=== PATIENT | female | born 1990 | race American Indian/Alaskan Native ===

== ENCOUNTER 2019-06-07 18:07 | Outpatient (CLI) | payer MEDICAID, OTHER ==
[2019-06-07 18:32] VITALS: BP 128/76
--- NOTE | 2019-06-07 20:41 | Event Note ---
Date: 06/07/19 Patient complains of possible leaking amniotic fluid, no bleeding. +fm. SSE, negative pool, negative fern, cervix closed. GUIDO verbal report 8cm FHT's cat 1, allow home. Labor precautions
--- NOTE | 2019-06-07 21:55 | Ultrasound Report ---
Limited OB Ultrasound HISTORY: LEAKING FLUID. Possible premature rupture membranes, here to evaluate GUIDO, estimated delive ry date by last menstrual period is 39 weeks and 6 days. TECHNIQUE: Grayscale and color Doppler imaging performed. COMPARISON: None FINDINGS: Single intrauterine gestation which is cephalic in presentation. heart rate is 156 bp m. GUIDO is 8.7. Umbilical cord adjacent to the neck, incompletely visualized on this exam. IMPRESSION: Single viable intrauterine gestation with GUIDO of 8.7. Signer Name: Lucian Cardona MD Signed: 06/07/2019 9:51 PM Workstation Name: [id number]
== END 2019-06-07 20:44 | disposition home or self-care (01) ==
LOC: TRG 18:07
PROVIDERS: ATTEND Obstetrics & Gynecology
DX: O47.1 False labor at or after 37 completed weeks of gestation (principal); Z3A.39 39 weeks gestation of pregnancy
CPT/HCPCS: 59025; 76815

== ENCOUNTER 2019-06-09 14:27 | Inpatient (IN) | payer OTHER ==
[2019-06-09] MEDS ORDERED: MINERAL OIL PO PRN (17:28)
[2019-06-09] MEDS ORDERED: BRETHINE SUB-Q PRN (17:28)
[2019-06-09] MEDS ORDERED: XYLOCAINE 2% INFILTRATI ONE (17:28)
[2019-06-09] MEDS ORDERED: ZOFRAN IV PRN (17:28)
[2019-06-09] MEDS ORDERED: SUBLIMAZE IV PRN (17:28)
[2019-06-09] MEDS ORDERED: LACTATED RINGERS 1,000 ML IV SCH (18:00)
[2019-06-09] MEDS ORDERED: PITOCin/NS 30 UNIT/500ML 30 UNITS/500 ML BAG IV SCH (18:00)
[2019-06-09] MEDS ORDERED: PITOCin/NS 20 UNIT/1000ML DRIP 20 UNITS/1,000 ML BAG IV SCH (18:00)
--- NOTE | 2019-06-09 18:53 | History and Physical Report ---
History of Present Illness Date of examination: 06/09/19 (SROM ) Chief complaint: SROM 1200 History of present illness: EDC Confirmation: 06/09/2019 Past History : 5 Term Births: 4 Premature Births: 0 Living Children: 4 Para: 4 Mult. Births: 0 Prev : 0 Prev. attempt? 0 Aborta: 0 Elect. Ab: 0 Spont. Ab: 0 Ectopics: 0 # 1 Delivery date: 2006 Weeks Gestation: term labor: no Delivery type: Sex: Female weight: 8#1 # 2 Delivery date: 2008 Weeks Gestation: term labor: no Delivery type: Sex: Male weight: 6#13 # 3 Delivery date: 2012 Weeks Gestation: term labor: no Delivery type: Sex: Male weight: 7#12 # 4 Delivery date: 2015 Weeks Gestation: term labor: no Delivery type: Infant Sex: Male weight: 7#0 Past Medical History: Asthma - inhaler, managed by Dr. Tillman Past Surgical History: Negative Past Surgical History Past Medical History Surgery (Non-digital business analyst): Negative Past Surgical History Abnormal PAP: positive, +HRHPV, Neg - 11/23/18 Family Hx: MGGM, MGM - breast CA Maternal aunt - Thyroid ca Social Hx: Single no ETOH/drugs/Smoking Works as financial auditor in [place] Infection History Hx of STD: + RPR HIV Risk Eval: low risk Hepatitis B Risk Eval: low risk Personal hx. of genital herpes: no Partner hx. of genital herpes: no Rash, Viral, or Febrile illness since last LMP? no Varicella/Chicken Pox Status: Previous Disease Genetic History Congenital Heart Defect: Mom: no Dad: no Michael Disease: Mom: no Dad: no Thalassemia Mom: no Dad: no Neural Tube Defect Mom: no Dad: no Down's Syndrome Mom: no Dad: no Jose Eduardo-Sachs Mom: no Dad: no Sickle Cell Disease/Trait Mom: no Dad: no Hemophilia Mom: no Dad: no Muscular Dystrophy Mom: no Dad: no Cystic Fibrosis Mom: no Dad: no [place] Chorea Mom: no Dad: no Mental Retardation Mom: no Dad: no Fragile X Mom: no Dad: no Other Genetic/Chromosomal Disorder Mom: no Dad: no Child w/other defect Mom: no Dad: no Enviromental Exposures Xray Exposure: no Medication, drug, or alcohol use since LMP: no Chemical/Other Exposure: no Exposure to Cat Liter: no Hx of Parvovirus (Fifth Disease): no Occupational Exposure to Children: none Active Medications (reviewed today): None Current Allergies (reviewed today): No known allergies Past History Past Medical History: other (see HPI) Past Surgical History: other (see HPI) SPECIALTY COOK History: other (see HPI) Family/Genetic History: other (see HPI) - Obstetrical History Expected Date of Delivery: 06/09/19 Actual Gestation: 40 Week(s) 0 Day(s) : 5 Para: 4 Hx # Term Pregnancies: 4 Number of Pregnancies: 0 Spontaneous Abortions: 0 Induced : 0 Number of Living Children: 4 Medications and Allergies Allergies Allergy/AdvReac Type Severity Reaction Status Date / Time No Known Allergies Allergy Verified 06/07/19 18:42 Home Medications Medication Instructions Recorded Confirmed Last Taken Type Vit-Fe Fumar-FA [ 1 tab PO QDAY 06/07/19 06/07/19 06/07/19 09:00 History Vitamin] 1 Active Meds: Active Medications Ephedrine Sulfate (Ephedrine Sulfate) 10 mg IV Q2M PRN PRN Reason: Hypotension Fentanyl (Sublimaze) 100 mcg IV Q2H PRN PRN Reason: Labor Pain Oxytocin/Sodium Chloride (Pitocin/Ns 20 Unit/1000ml Drip) 20 units in 1,000 mls @ 125 mls/hr IV DIRECT ARNALDO Oxytocin/Sodium Chloride (Pitocin/Ns 30 Unit/500ml) 30 units in 500 mls @ 4 mls/hr IV TITR ARNALDO; Protocol Lactated Ringer's (Lactated Ringers) 1,000 mls @ 125 mls/hr IV DIRECT ARNALDO Mineral Oil (Mineral Oil) 30 ml PO QHS PRN PRN Reason: Constipation Ondansetron HCl (Zofran) 4 mg IV Q8H PRN PRN Reason: Nausea And Vomiting Terbutaline Sulfate (Brethine) 0.25 mg SUB-Q ONCE PRN PRN Reason: Hyperstimulation/Hypertonicity Review of Systems All systems: negative - Vital Signs Vital signs: Vital Signs Temp Pulse Resp BP 98.3 F 90 20 129/71 06/09/19 14:49 06/09/19 14:49 06/09/19 14:49 06/09/19 14:49 Temp Pulse Resp BP Pulse Ox 98.3 F 76 16 126/70 98 06/09/19 14:49 06/09/19 18:45 06/09/19 17:43 06/09/19 17:43 06/09/19 18:45 - Physical Exam Breasts: Positive: normal Cardiovascular: Regular rate Lungs: Positive: Clear to auscultation, Normal air movement Abdomen: Positive: normal appearance, soft Genitourinary (Female): Positive: normal external genitalia, normal perenium Vulva: both: normal (no HSV lesion) Vagina: Positive: normal moisture (clear amniotic fluid), other (no HSV lesion) Uterus: Positive: normal size Anus/Rectum: Positive: normal perianal skin Extremities: Positive: normal Deep Tendon Reflex Grade: Normal +2 - Obstetrical FHR: category 1 Uterine Contraction Monitor Mode: External Cervical Dilatation: 2 Cervical Effacement Percentage: 60 station: -2 Uterine Contraction Pattern: Irregular Uterine Tone Measurement Phase: Contraction Uterine Contraction Intensity: Mild Results All other labs normal. Assessment and Plan 29y/o @ 40 weeks admitted for SROM since 1200 today. GUIDO checked today 2cms. GBS negative. Admission orders in EMR. Anticipate . - Patient Problems (1) 40 weeks gestation of Current Visit: Yes Status: Acute (2) SROM (spontaneous rupture of membranes) Current Visit: Yes Status: Acute Plan to address problem: Limit Pit augmentation (3) Asthma Current Visit: Yes Status: Acute Qualifiers: Asthma severity: unspecified severity (4) Herpes Current Visit: Yes Status: Acute Plan to address problem: pt has been taking valtrex Pt denies any s/s of an outbreak no lesions noted
--- NOTE | 2019-06-09 18:58 | Ultrasound Report ---
OB ultrasound. 06/09/2019. HISTORY: Evaluate position and GUIDO. COMPARISON: 06/07/2019. FINDINGS: A single viable intrauterine is in the cephalic position. heart tones are 1 47 bpm. GUIDO is 2.2 cm. IMPRESSION: Abnormal GUIDO of 2.2 cm. GUIDO was previously 8.7 cm. Signer Name: Tone Alberto MD Signed: 06/09/2019 6:53 PM Workstation Name: [id number]
[2019-06-09 20:42] LABS: Hematocrit 36.1 % (30.3-42.9); Mean Corpuscular HGB Conc 33 % (30-34); Mean Corpuscular Volume 97 fl (79-97); Platelet Count 225 K/mm3 (140-440); Red Blood Count 3.74 M/mm3 (3.65-5.03); Red Cell Distribution Width 13.7 % (13.2-15.2)
--- NOTE | 2019-06-10 01:02 | Procedure Note ---
OB Delivery Note - Delivery Date of Delivery: 06/10/19 ( male) Client Relationship Executive: ALLEN MAJOR Estimated blood loss: 300cc - Vaginal Delivery presentation: vertex Delivery position: OA Intrapartum events: PROM->1hr before delivery Delivery induction: none Delivery augmentation: pitocin Delivery monitor: external FHT, external uterine Route of delivery: Delivery placenta: spontaneous Delivery cord: nuchal cord (x1 ), 3 umbilical vessels Episiotomy: none Delivery laceration: none Anesthesia: intravenous Delivery comments: Male del over intact perineum, placed skin to skin. cord blood collected. Intact perineum, lochia scant. Mother and baby remain LDR stable. - Infant A at 1 minute: 8 Infant Gender: Male (7#2)
[2019-06-10] MEDS ORDERED: MILK OF MAGNESIA PO PRN (02:44)
[2019-06-10] MEDS ORDERED: PHENERGAN PO PRN (02:44)
[2019-06-10] MEDS ORDERED: TYLENOL PO PRN (02:44)
[2019-06-10] MEDS ORDERED: DERMOPLAST TP PRN (02:44)
[2019-06-10] MEDS ORDERED: LANSINOH TP PRN (02:44)
[2019-06-10] MEDS ORDERED: SODIUM CHLORIDE FLUSH SYRINGE 10 ML IV NR (02:44)
[2019-06-10] MEDS ORDERED: TUCKS PAD TP PRN (02:44)
[2019-06-10] MEDS ORDERED: DULCOLAX PR PRN (02:44)
[2019-06-10] MEDS ORDERED: BENADRYL PO PRN (02:44)
[2019-06-10] MEDS ORDERED: IBUPROFEN PO ONE (03:00)
[2019-06-10] MEDS: IBUPROFEN PO SCH ×2 (06:16→08:47)
--- NOTE | 2019-06-10 08:38 | Progress Note ---
Assessment and Plan - Patient Problems (1) (normal spontaneous vaginal delivery) Onset Date: ~06/10/19 Current Visit: Yes Status: Acute Plan to address problem: Continue pathway Advance diet and activity as tolerated Anticipate d/c tomorrow Subjective - Subjective Date of service: 06/10/19 (awake caring for NB) Principal diagnosis: x 7hs s/p delivery Patient reports: appetite normal, voiding normally, pain well controlled, ambulating normally [place]: doing well Objective - Vital Signs Latest vital signs: Vital Signs Temp Pulse Resp BP BP Pulse Ox 06/10/19 07:18 97.6 F 18 107/64 06/10/19 03:03 18 06/10/19 02:40 98.8 F 82 20 122/70 06/10/19 01:41 85 119/68 06/10/19 01:26 78 128/72 06/10/19 01:11 86 128/71 06/10/19 00:55 88 127/62 06/10/19 00:25 64 86 06/10/19 00:19 141 H 82 L 06/10/19 00:11 108 H 98 06/10/19 00:06 97 H 100 06/10/19 00:01 93 H 99 06/09/19 23:56 105 H 98 06/09/19 23:28 89 107/59 06/09/19 22:57 90 118/56 06/09/19 22:31 98.9 F 16 06/09/19 22:29 80 109/64 06/09/19 19:26 79 108/55 06/09/19 19:05 81 99 06/09/19 19:00 93 H 98 06/09/19 18:55 82 97 06/09/19 18:50 83 98 06/09/19 18:45 76 98 06/09/19 17:43 83 16 126/70 98 06/09/19 17:40 84 126/70 06/09/19 17:38 81 90 06/09/19 14:50 90 129/71 06/09/19 14:49 98.3 F 90 20 129/71 Intake and Output 06/09/19 06/10/19 06/10/19 22:59 06:59 14:59 Intake Total 13.667 Output Total 350 Balance 13.667 -350 Intake: IV 13.667 PITOCin/NS 30 UNIT/500ML 13.667 30 units In 500 ml @ 4 mls/hr IV TITR ARNALDO Rx#: [id number] Output: Urine 350 Void 350 Other: Total, Output Amount 150 Estimated Blood Loss 300 - Exam Breasts: Present: normal Cardiovascular: Present: Regular rate Lungs: Present: Normal air movement Abdomen: Present: normal appearance, soft, normal bowel sounds Vulva: both: normal Uterus: Present: normal, fundal height below umbilicus Extremities: Present: normal Deep Tendon Reflex Grade: Normal +2 Incision: Present: normal, dry, intact - Labs Labs: Abnormal lab results 06/09/19 Range/Units 20:23 WBC 11.1 H (4.5-11.0) K/mm3
[2019-06-10] MEDS: COLACE PO SCH (10:34)
[2019-06-10] MEDS: NORCO 5/325 PO PRN ×2 (10:34→17:02)
[2019-06-10] MEDS: PRENATAL VITAMIN PO SCH (10:43)
[2019-06-10 13:48] LABS: Hematocrit 32.6 % (30.3-42.9)
[2019-06-11] MEDS: COLACE PO SCH ×2 (00:07→10:45)
[2019-06-11] MEDS: IBUPROFEN PO SCH ×3 (00:07→12:31)
[2019-06-11] MEDS: NORCO 5/325 PO PRN (04:23)
[2019-06-11] MEDS ORDERED: BOOSTRIX IM ONE (06:00)
[2019-06-11] MEDS ORDERED: DEPO-PROVERA (CONTRACEPTION) IM ONE (08:36)
--- NOTE | 2019-06-11 08:41 | Discharge Summary ---
Providers - Providers Date of Admission: 06/09/19 17:28 Date of discharge: 06/11/19 (pt agrees with d/c) Attending physician: GI CHAN Primary care physician: GI CHAN Hospitalization Reason for admission: active labor Delivery: Episiotomy: none Laceration: none Incision: normal Other procedures: none complications: none Discharge diagnosis: IUP at term delivered baby: male Hospital course: uncomplicated vaginal delivery Pt resting in bed No voiced c/o Depo for BC until nexplanon can be placed VSS FF below umb Lochia small Perineum intact H&H stable No s/sx of anemia Doing well s/p vag delivery P: d/c today with instructions RTO 4 weeks PP care and 1 week NB circ. Condition at discharge: Good Disposition: DC-01 TO HOME OR SELFCARE - Discharge Diagnoses (1) (normal spontaneous vaginal delivery) Status: Acute Comment: RTO 4 weeks PP care Plan - Discharge Medications Prescriptions: Lidocain2.5%/Prilocai2.5% [Emla] 5 gm TP ONCE PRN #1 tube PRN Reason: Pain Ibuprofen [Motrin 800 MG tab] 800 mg PO Q8HR PRN #30 tablet PRN Reason: Pain - Provider Discharge Summary Activity: routine, no sex for 6 weeks, no heavy lifting 4 weeks, no strenuous exercise Diet: routine Instructions: routine Additional instructions: [] Smoking cessation referral if applicable(refer to patient education folder for contact #) [] Refer to [facility] Booklet Call your doctor immediately for: * Fever > 100.5 * Heavy vaginal bleeding ( >1 pad per hour) * Severe persistent headache * Shortness of breath * Reddened, hot, painful area to leg or breast * Drainage or odor from incision. * Keep incision clean and dry at all times and follow doctor's instructions regarding bathing/showering - Follow up plan Follow up: GI CHAN MD [Primary Care Provider] - 7 Days (Congratulations! please call [phone] to schedule your visit in 4 weeks and your son's circumcision in 1 week. Bring the EMLA cream with you to his visit. Do NOT use at home Take medications as prescribed. Call with concerns.)
[2019-06-11] MEDS: PRENATAL VITAMIN PO SCH (10:44)
[2019-06-11 12:39] VITALS: BP 127/71
== END 2019-06-11 13:50 | disposition home or self-care (01) | DRG 774 ==
LOC: LD 14:27 → TRG 14:27 → LD 17:28 → OB 06-10 02:43
PROVIDERS: ADMIT Obstetrics & Gynecology; ATTEND Obstetrics & Gynecology
PROC: 10E0XZZ Delivery of Products of Conception, External Approach (ICD-10-PCS; principal; 2019-06-10)
PROC: 3E0234Z Introduction of Serum, Toxoid and Vaccine into Muscle, Percutaneous Approach (ICD-10-PCS; 2019-06-11)
DX: O42.92 Full-term premature rupture of membranes, unspecified as to length of time between rupture and onset of labor (principal); O98.52 Other viral diseases complicating childbirth; J45.909 Unspecified asthma, uncomplicated; B00.9 Herpesviral infection, unspecified; O69.81X0 Labor and delivery complicated by cord around neck, without compression, not applicable or unspecified; Z80.3 Family history of malignant neoplasm of breast; Z80.8 Family history of malignant neoplasm of other organs or systems; O99.52 Diseases of the respiratory system complicating childbirth; Z23 Encounter for immunization; Z37.0 Single live birth; Z3A.40 40 weeks gestation of pregnancy
CPT/HCPCS: 36415; 76815; 85014; 85018; 85027; 86592; 86850; 86900; 86901; G0378; J1050; J2590; J3010; J7120

== ENCOUNTER 2021-04-10 14:11 | Outpatient (CLI) | payer OTHER ==
[2021-04-10 14:53] VITALS: BP 110/56
[2021-04-10] MEDS ORDERED: ACETAMINOPHEN 325 MG TAB PO PRN (16:00)
== END 2021-04-10 16:30 | disposition home or self-care (01) ==
LOC: TRG 14:11 → APU 14:13 → TRG 16:30
PROVIDERS: ATTEND Obstetrics & Gynecology
DX: O26.893 Other specified pregnancy related conditions, third trimester (principal); R10.9 Unspecified abdominal pain; Z3A.29 29 weeks gestation of pregnancy
CPT/HCPCS: 59025